=== PATIENT | male | born 1995 | race Two or more races ===

== ENCOUNTER 2020-10-29 18:48 | Emergency (ER) | payer OTHER ==
[~2020-10-29] VITALS: Ht 170.2 cm; Wt 90.7 kg
[2020-10-29] MEDS ORDERED: KETO10TA2 PO (22:59)
[2020-10-29] MEDS ORDERED: NORFLEX100MG PO (22:59)
== END 2020-10-29 23:00 | disposition home or self-care (01) ==
LOC: ER 18:48
DX: S43.101A Unspecified dislocation of right acromioclavicular joint, initial encounter (principal); X58.XXXA Exposure to other specified factors, initial encounter; Y93.11 Activity, swimming; Y92.832 Beach as the place of occurrence of the external cause; Y99.8 Other external cause status